=== PATIENT | female | born 1965 | race Caucasian/White ===

== ENCOUNTER 2023-11-04 07:50 | Day surgery (SDC) | payer OTHER ==
[~2023-11-04] VITALS: Ht 167.6 cm; Wt 77.1 kg
[2023-11-04] MEDS ORDERED: fentaNYL citrate 0.05 MG/ML VIAL ONE (08:37)
[2023-11-04] MEDS: fentaNYL citrate 0.05 MG/ML VIAL IVP ONE (09:25)
[2023-11-04] MEDS: LIDOCAINE 2% 100 MG/5 ML UJET TP ONE (09:36)
== END 2023-11-04 12:16 | disposition home or self-care (01) ==
LOC: MOR 07:50 → MMU 07:50 → MOR 12:16
PROVIDERS: ATTEND Internal Medicine Gastroenterology
DX: Z12.11 Encounter for screening for malignant neoplasm of colon (principal); K57.30 Diverticulosis of large intestine without perforation or abscess without bleeding; K63.5 Polyp of colon; E78.00 Pure hypercholesterolemia, unspecified; Z79.899 Other long term (current) drug therapy; Z98.890 Other specified postprocedural states
CPT/HCPCS: 45385; J3010